=== PATIENT | male | born 1985 | race Caucasian/White ===

== ENCOUNTER 2020-11-13 16:24 | Emergency (ER) | payer BC ==
[~2020-11-13] VITALS: Ht 180.3 cm; Wt 136.1 kg
[2020-11-13] MEDS ORDERED: ULTRACET TABLE1 EACH PO (16:31)
[2020-11-13] MEDS ORDERED: IBUPROFEN IB200 MG PO (16:31)
[2020-11-13] MEDS ORDERED: IBUPROFEN 200 MG TAB PO ONE (16:45)
[2020-11-13] MEDS ORDERED: ONDANSETRON HCL 4 MG ORAL DISINTEGRATING TAB PO ONE (16:45)
[2020-11-13] MEDS ORDERED: HYDROCODONE/APAP 5MG-325MG TAB PO ONE (16:45)
[2020-11-13] MEDS ORDERED: IBUPROFEN 600 MG TAB ONE (17:04)
== END 2020-11-13 18:19 | disposition home or self-care (01) ==
LOC: FSED 16:46
DX: S50.12XA Contusion of left forearm, initial encounter (principal); V43.53XA Car driver injured in collision with pick-up truck in traffic accident, initial encounter; Y92.488 Other paved roadways as the place of occurrence of the external cause
CPT/HCPCS: 73060; 73070; 99283; Q0162